=== PATIENT | female | born 1975 | race Asian ===

== ENCOUNTER 2022-02-02 04:12 | Day surgery (SDC) | payer BC ==
[2022-02-01 13:37] VITALS: BMI 26.5
[2022-02-02] MEDS ORDERED: LIDOCAINE HCL 1%, 10 MG/ML (20ML VIAL) ONE ×2 (13:54→15:03)
[2022-02-02] MEDS ORDERED: MIDAZOLAM HCL 2 MG/2 ML SINGLE DOSE VIAL ONE (14:06)
[2022-02-02] MEDS ORDERED: FENTANYL CITRATE/PF 50 MCG/ML VIAL ONE ×2 (14:16→15:34)
[2022-02-02] MEDS ORDERED: ceFAZolin 2 GRAM PREMIX BAG IVPB ONE (14:18)
[2022-02-02] MEDS ORDERED: LIDOCAINE HCL 1%, 10 MG/ML (20ML VIAL) INF ONE ×2 (14:18)
[2022-02-02] MEDS ORDERED: ONDANSETRON 4 MG/2 ML VIAL IVPUSH PRN (15:19)
[2022-02-02] MEDS ORDERED: FENTANYL CITRATE/PF 50 MCG/ML VIAL IVPUSH PRN (15:19)
[2022-02-02] MEDS ORDERED: oxyCODONE HCL 5 MG TABLET PO PRN (15:19)
[2022-02-02] MEDS ORDERED: LACTATED RINGERS SOLUTION 1,000 ML IV SCH (15:30)
[2022-02-02 17:20] VITALS: RESP 16
[2022-02-02] MEDS ORDERED: oxyCODONE HCL 5 MG TABLET ONE (17:42)
[2022-02-02 18:34] VITALS: BP 112/70; PULSE 60; TEMP 97.6
== END 2022-02-02 18:25 | disposition home or self-care (01) ==
LOC: JASU-SURG 04:12 → EDBD 14:00 → JASU-SURG 18:25
PROVIDERS: ATTEND Surgery
PROC: 0HBT0ZX Excision of Right Breast, Open Approach, Diagnostic (ICD-10-PCS; principal; 2022-02-02 13:00)
DX: D24.1 Benign neoplasm of right breast (principal)
CPT/HCPCS: 19281; 76098-TC-FY; 81025; 88307-TC; 88341-TC; 88342-TC; 94760